=== PATIENT | female | born 1945 | race Two or more races ===

== ENCOUNTER 2017-01-28 13:21 | Outpatient (CLI) | payer MEDICARE, MEDICAID ==
--- NOTE | 2017-01-28 14:39 | Diagnostic Imaging Report ---
Indication: COUGH Technique: Two views of the chest Comparison: none Findings: Lungs and pleural spaces are clear. Heart size is normal. Aorta is tortuous. There are degenerative changes of the thoracic spine Impression: Negative
== END 2017-01-28 15:21 | disposition home or self-care (01) ==
LOC: RAD 13:21
DX: R05 Cough (principal)
CPT/HCPCS: 71020